=== PATIENT | female | born 1945 | race Hispanic/Latino ===

== ENCOUNTER 2017-10-19 08:17 | Day surgery (SDC) | payer MEDICARE ==
[~2017-10-19 08:17] MED LIST: ANCEF/STERILE WATER 2 GM/20 ML IV NR
[2017-10-19] MEDS ORDERED: ZOFRAN IV PRN (09:28)
[2017-10-19] MEDS ORDERED: DILAUDID IV PRN (09:28)
--- NOTE | 2017-10-19 09:29 | Anesthesia Consultation ---
Anesthesia Consult and Med Hx Date of service: 10/19/17 - Airway Anesthetic Teeth Evaluation: Good ROM Head & Neck: Adequate Mental/Hyoid Distance: Adequate Mallampati Class: Class I Intubation Access Assessment: Good - Pulmonary Exam CTA: Yes - Cardiac Exam Cardiac Exam: RRR - Pre-Operative Health Status ASA Pre-Surgery Classification: ASA2 Proposed Anesthetic Plan: General - Pulmonary Hx Smoking: No Hx Asthma: No Hx Respiratory Symptoms: No Hx Sleep Apnea: No (PARVIN PRE SCREEN LOW RISK.) - Cardiovascular System Hx Hypertension: No Hx Heart Attack/AMI: No Hx Cardia Arrhythmia: No Hx Heart Murmur: No - Central Nervous System Hx Neuromuscular Disorder: No Hx Seizures: No CVA: No Hx Psychiatric Problems: No - Gastrointestinal Hx Gastroesophageal Reflux Disease: No - Endocrine Hx Liver Disease: No Hx Insulin Dependent Diabetes: No Hx Non-Insulin Dependent Diabetes: No Hx Thyroid Disease: No - Hematic Hx Anemia: Yes - Other Systems Hx Cancer: No Hx Obesity: No
--- NOTE | 2017-10-19 09:29 | Anesthesia Day of Surgery ---
Anesthesia Day of Surgery - Day of Surgery Patient Examined: Yes Patient H&P Reviewed: Yes Patient is NPO: Yes
[2017-10-19] MEDS ORDERED: XYLOCAINE MPF 2% ONE (09:49)
[2017-10-19] MEDS ORDERED: SUBLIMAZE ONE (09:50)
[2017-10-19] MEDS ORDERED: DIPRIVAN 10 MG/ML IV ONE (09:50)
[2017-10-19] MEDS ORDERED: NACL 0.9% 1000 ML 1,000 ML IV SCH (10:00)
[2017-10-19] MEDS ORDERED: ZOFRAN ONE (11:03)
--- NOTE | 2017-10-19 11:49 | Short Stay Summary ---
Short Stay Documentation Date of service: 10/19/17 - History H&P: obtained from office - Allergies and Medications Current Medications: Allergies Sulfa (Sulfonamide Antibiotics) Allergy (Verified 10/12/17 13:05) Rash SILK TAPE Allergy (Uncoded 10/13/17 11:06) Rash Home Medications Medication Instructions Recorded Confirmed Last Taken Type Magnesium Oxide [Mag-Ox] 400 mg PO QDAY #5 tablet 10/14/17 10/19/17 10/18/17 09: 00 Rx levoFLOXacin [Levaquin TAB] 500 mg PO QDAY #7 tablet 10/14/17 10/19/17 10/18/17 09:00 Rx oxyCODONE /ACETAMINOPHEN [Percocet 1 tab PO BID PRN #10 tablet 10/14/17 Unknown Rx 5/325] Active Medications Cefazolin Sodium (Ancef/Sterile Water 2 Gm/20 Ml) 2 gm IV PREOP NR Stop: 10/19/17 23:59 Hydromorphone HCl (Dilaudid) 0.5 mg IV Q10MIN PRN PRN Reason: Pain , Severe (7-10) Stop: 10/19/17 18:00 Sodium Chloride (Nacl 0.9% 1000 Ml) 1,000 mls @ 75 mls/hr IV DIRECT NIKOLAI Last Admin: 10/19/17 09:35 Dose: 75 mls/hr Ondansetron HCl (Zofran) 4 mg IV ONCE PRN PRN Reason: Nausea And Vomiting Stop: 10/19/17 18:00 - Brief post op/procedure progress note Date of procedure: 10/19/17 Pre-op diagnosis: rt renal stones Post-op diagnosis: same Procedure: RT ESWL Anesthesia: GETA Surgeon: LALI HILLS Estimated blood loss: none Condition: stable - Hospital course Hospital course: [facility]CO & POST OP INFO ON CHART - Disposition Condition at discharge: Stable Disposition: DC-01 TO HOME OR SELFCARE Short Stay Discharge Plan Follow up with: PRIMARY CARE, [Primary Care Provider] - 7 Days
[2017-10-19] MEDS ORDERED: NORCO 5/325 PO PRN (12:07)
--- NOTE | 2017-10-19 12:44 | Operative Report ---
PREOPERATIVE DIAGNOSES: Right renal calculi, 9 mm and 7 mm, status post right double-J stent placement. POSTOPERATIVE DIAGNOSES: Right renal calculi, 9 mm and 7 mm, status post right double-J stent placement. PROCEDURE: Extracorporal shock wave lithotripsy, staged procedure. SURGEON: Rachid Tian MD ANESTHESIA: General. ESTIMATED BLOOD LOSS: Minimal. FLUIDS: Crystalloid. COMPLICATIONS: No complications. INDICATIONS: This patient is a 72-year-old female was seen in the hospital by Dr. Alaniz for right flank pain. CT of abdomen and pelvis revealed 2, possibly 3 stones in her right kidney. She underwent cystoscopy, right double-J stent placement. On KUB in the office appears that she may have passed a previous stone and now has 2 stones, a 7 mm and a 9 mm. Discussed options, she agreed to proceed with surgical intervention. DESCRIPTION OF PROCEDURE: The patient was taken to the operative suite, placed in a supine position. After adequate general anesthesia, her stone was localized in 2 planes using fluoroscopy. Extracorporal shock wave lithotripsy was administered in maximum kV of 8 and 3000 shocks. The shocks were distributed amongst the 2 stones with approximately 1500 per stone. Adequate fragmentation could be appreciated. She tolerated the procedure well. She was extubated and taken to recovery room. She will go home on [place] and a strainer and follow up in the office. JOB# [id number] FARHAN/FRANCOISE
--- NOTE | 2017-10-19 12:49 | Post Anesthesia Evaluation ---
- Post Anesthesia Evaluation Patient Participated: Yes Airway Patent: Yes Stable Respiratory Function: Yes Nausea/Vomiting: No Temp > 96.8F: Yes Pain Manageable: Yes Adequeate Hydration: Yes Anesthesia Complications: No
[2017-10-19 14:47] VITALS: BP 132/70
== END 2017-10-19 14:25 | disposition home or self-care (01) ==
LOC: OR 08:17
PROVIDERS: ATTEND Urology
DX: N20.0 Calculus of kidney (principal); I10 Essential (primary) hypertension; M19.90 Unspecified osteoarthritis, unspecified site; G47.33 Obstructive sleep apnea (adult) (pediatric); Z88.2 Allergy status to sulfonamides; Z88.8 Allergy status to other drugs, medicaments and biological substances; Z79.899 Other long term (current) drug therapy; Z87.440 Personal history of urinary (tract) infections; Z98.51 Tubal ligation status; Z90.710 Acquired absence of both cervix and uterus; Z86.2 Personal history of diseases of the blood and blood-forming organs and certain disorders involving the immune mechanism
CPT/HCPCS: 50590; J0690; J2405; J2704; J3010; J7030